=== PATIENT | female | born 1980 | race Caucasian/White ===

== ENCOUNTER → 2018-03-28 | Outpatient (CLI) | payer BC ==
--- NOTE | 2018-03-28 16:50 | RADIOLOGY REPORT (SQ) ---
EXAM DESCRIPTION: C SP 4 OR 5 VIEWS COMPLETED DATE/TIME: 03/28/2018 3:57 pm REASON FOR STUDY: RADICULOPATHY, NEUROPATHY COMPARISON: MRI C SPINE 04/10/2012 NUMBER OF VIEWS: Five views. TECHNIQUE: AP, lateral, obliques and odontoid radiographic images acquired of the cervical spine. LIMITATIONS: None. FINDINGS: MINERALIZATION: Normal. ALIGNMENT: Anatomic. VERTEBRAE: Vertebral bodies of normal height. DISCS: No significant osteophytes or sclerosis. Disc height maintained. FORAMINA: No osteophytes or foraminal narrowing. LATERAL AND POSTERIOR ELEMENTS: Facets, lateral masses and spinous processes without significant find ings. HARDWARE: None in the spine. SOFT TISSUES: No masses or calcifications. Lung apices clear.Tiny surgical cate left superficial n radhika soft tissues OTHER: No other significant finding. IMPRESSION: NO SIGNIFICANT RADIOGRAPHIC FINDING IN THE CERVICAL SPINE. TECHNICAL DOCUMENTATION: JOB ID: [id number] [employer]- All Rights Reserved Reading location - IP/workstation name: [email or web address]
== END ==
LOC: OD 15:36
PROVIDERS: ATTEND Nurse Practitioner Primary Care
DX: M54.12 Radiculopathy, cervical region (principal)
CPT/HCPCS: 72050

== ENCOUNTER → 2018-03-28 | Outpatient (CLI) | payer BC ==
[2018-03-28 17:29] LABS: HEMATOCRIT 37.8 % (36.0-47.0); HEMOGLOBIN 13.3 g/dL (12.0-15.5); MEAN CORPUSCULAR HEMOGLOBIN 31.4 pg (27.0-33.4); MEAN CORPUSCULAR HGB CONC 35.1 g/dL (32.0-36.0); MEAN CORPUSCULAR VOLUME 89 fl (80-97); PLATELET COUNT 247 10^3/uL (150-450); RED BLOOD COUNT 4.23 10^6/uL (3.72-5.28); RED CELL DISTRIBUTION WIDTH 12.9 % (11.5-14.0); WHITE BLOOD COUNT 8.8 10^3/uL (4.0-10.5)
[2018-03-28 17:58] LABS: ALANINE AMINOTRANSFERASE 29 U/L (9-52); ALBUMIN 4.4 g/dL (3.5-5.0); ALKALINE PHOSPHATASE 52 U/L (38-126); ANION GAP 10 (5-19); ASPARTATE AMINO TRANSFERASE 22 U/L (14-36); BILIRUBIN,DIRECT 0.3 mg/dL (0.0-0.4); BILIRUBIN,TOTAL 0.7 mg/dL (0.2-1.3); BLOOD UREA NITROGEN 13 mg/dL (7-20); CALCIUM 9.7 mg/dL (8.4-10.2); CARBON DIOXIDE 29 mmol/L (22-30); CHLORIDE 104 mmol/L (98-107); GLUCOSE 95 mg/dL (75-110); POTASSIUM 4.3 mmol/L (3.6-5.0)
== END ==
LOC: OD 16:06
PROVIDERS: ATTEND Nurse Practitioner Primary Care
DX: M54.10 Radiculopathy, site unspecified (principal); E66.9 Obesity, unspecified
CPT/HCPCS: 36415; 80053; 82306; 82607; 82746; 83036; 84443; 85027

== ENCOUNTER 2018-06-03 07:32 | Emergency (ER) | payer BC ==
--- NOTE | 2018-06-03 08:10 | ER Document Report ---
ED General - General Chief Complaint: Leg Pain Stated Complaint: LEFT LEG PAIN Time Seen by Provider: 06/03/18 08:09 Mode of Arrival: Ambulatory Information source: Patient TRAVEL OUTSIDE OF THE [place] 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 Patient noted she has had some swelling, warmth to touch in her left calf since then. Intermittently takes aspirin but does not take daily anticoagulant. Denies any other area of injury. Worse when she has her foot and plantar flexion. Is not tried any uyno-csu-uqovryy pain medication. denies fevers, chills, chest pain,palpitations, shortness of breath, dyspnea, nausea, vomiting, diarrhea, abdominal pain, hematuria,blurred vision, double vision, loss of vision, speech changes, LH, dizziness, syncope, headaches, wheezing, ST, URI, neck pain, weakness, bowel or bladder dysfunction , saddle anesthesia, numbness or tingling in bilateral upper or lower extremities equally, muscle paralysis, weakness in bilateral upper or lower extremities equally or rash. Denies IV drug use. - Related Data Allergies/Adverse Reactions: ibuprofen [From Motrin] Allergy (Severe, Verified 06/03/18 07:33) Past Medical History - General Information source: Patient - Social History Smoking Status: Unknown if Ever Smoked Chew tobacco use (# tins/day): No Frequency of alcohol use: None Drug Abuse: None Family History: CAD Patient has suicidal ideation: No Patient has homicidal ideation: No Neurological Medical History: Reports: Hx Migraine Renal/ Medical History: Denies: Hx Peritoneal Dialysis Past Surgical History: Reports: Hx Section, Hx Orthopedic Surgery - right knee x2 - Immunizations Hx Diphtheria, Pertussis, Tetanus Vaccination: Yes Review of Systems - Review of Systems Constitutional: No symptoms reported EENT: No symptoms reported Cardiovascular: No symptoms reported Respiratory: No symptoms reported Gastrointestinal: No symptoms reported Genitourinary: No symptoms reported Female Genitourinary: No symptoms reported Musculoskeletal: See HPI Skin: No symptoms reported Hematologic/Lymphatic: No symptoms reported Neurological/Psychological: No symptoms reported Physical Exam - Vital signs Vitals: Temp Pulse Resp BP Pulse Ox 98.5 F 75 16 128/79 H 98 06/03/18 07:38 07/07/18 07:38 06/03/18 07:38 06/03/18 07:38 06/03/18 07:38 - Notes Notes: PHYSICAL EXAMINATION: GENERAL: Well-appearing, well-nourished and in no acute distress. HEAD: Atraumatic, normocephalic. EYES: Pupils equal round and reactive to light, extraocular movements intact, conjunctiva are normal. ENT: Nares patent, oropharynx clear without exudates. Moist mucous membranes. NECK: Normal range of motion, supple without lymphadenopathy LUNGS: Breath sounds clear to auscultation bilaterally and equal. No wheezes rales or rhonchi. HEART: Regular rate and rhythm without murmurs ABDOMEN: Soft, nontender, nondistended abdomen. No guarding, no rebound. No masses appreciated. Female : deferred Musculoskeletal: Normal range of motion, no pitting or edema. No cyanosis. left calf tenderness with palpation to calf. negative félix's sign. anterior and posterior drawer test negative.Dtr + 2 in BLE. Full motor and sensory function. no ecchymosis or abrasions noted. distal pulses + 2 bilaterally and equally. Bilateral lower extremity without deformity or asymmetry. No STS or edema. No overlying erythema, warmth, discoloration. No lesions or break in the skin integrity. No evidence of compartment syndrome, lymphadenopathy, gangrene. Angulo test negative bilaterally. no palpable cords or evidence of thrombophlebitis. NEUROLOGICAL: Cranial nerves grossly intact. Normal speech, normal gait. Normal sensory, motor exams PSYCH: Normal mood, normal affect. SKIN: Warm, Dry, normal turgor, no rashes or lesions noted. Course - Re-evaluation Re-evalutation: 06/03/18 15:38 37-year-old female is afebrile, vitals stable and in no distress with prior history of 2 DVTs in her left lower extremity in the months of May approximately 9 years ago presents to the ED with sudden onset Pain after stepping down stairs yesterday and feeling a "pop". CBC negative for leukocytosis or anemia, CMP negative for any hepatic or renal deficiency, no electrolyte deficiencies. Patient states she has been taking Tylenol for pain. His ultrasound of left lower extremity negative for DVT. Discussed the patient the importance of applying compress, elevation, heat, nonweightbearing and following up with sales account specialist, she likely has a partial tear or sprain of her gastrocnemius muscle on the left. No evidence of a septic joint, gout flare, dislocation, or fracture on exam and imaging. Vitals wnl. At this time, I do not see an indication for labs or further imaging. Will discharge with conservative measures, return precautions, and follow-up recommendations. Advised patient to not drive, drink alcohol or operate heavy machinery while taking Flexeril as it can cause sedation. Follow-up with sales account specialist within the next week or so. I have reevaluated this patient multiple times and no significant life threatening changes, no signs of toxicity, sepsis or peritonitis are noted. The patient and I have discussed the diagnosis and risks , and we agree with discharging home and close follow-up. We also discussed returning to the Emergency Department immediately if new or worsening symptoms occur with the understanding that symptoms and presentations can change. At this time will discharge with return precautions and follow-up recommendations. Verbal discharge instructions given a the bedside and opportunity for questions given. We have discussed the symptoms which are most concerning (e.g. , worsening pain, fever, numbness or tingling down bilateral extremities, weakness, change in color, etc.) that necessitate immediate return. Medication warnings reviewed. All questions and concerns answered by this provider. Patient is in agreement with this plan and has verbalized understanding of return precautions and the need for primary care follow-up in the next 24-72 hours. Patient verbalized understanding of plan of care and agree with plan of care. - Vital Signs Vital signs: Temp Pulse Resp BP Pulse Ox 97.9 F 62 18 117/73 100 06/03/18 12:33 06/03/18 12:33 06/03/18 12:33 06/03/18 12:33 06/03/18 12:33 Discharge - Discharge Clinical Impression: Pain of left calf, Calf pain Condition: Stable Disposition: HOME, SELF-CARE Instructions: Muscle Relaxers ([facility]), Muscle Strain ([facility]), Myalagia (Muscle Pain ) ([facility]) Additional Instructions: Please follow up with the [facility] [address] [place] [id number] Prescriptions: Cyclobenzaprine HCl [Flexeril 10 mg Tablet] 10 mg PO TIDP PRN #9 tab PRN Reason: Prednisone 20 mg PO BID #10 tablet Forms: Return to Work Referrals: CELSO HILL NP [Primary Care Provider] - Follow up in 3-5 days MARCOS ROSS MD [ACTIVE STAFF] - Follow up in 3-5 days
[2018-06-03] MEDS ORDERED: HYDROCODONE/ACETAMINOPHEN 5-325 MG (6 TAB/ER DISP) PO PRN (08:34)
--- NOTE | 2018-06-03 09:14 | RADIOLOGY REPORT (SQ) ---
EXAM DESCRIPTION: TIBIA FIBULA LEFT COMPLETED DATE/TIME: 06/03/2018 8:50 am REASON FOR STUDY: sudden onset calf pain, heard a pop COMPARISON: None. NUMBER OF VIEWS: Two views. TECHNIQUE: Two radiographic images acquired of the left tibia and fibula to include the knee and ank le in at least one projection. LIMITATIONS: None. FINDINGS: MINERALIZATION: Normal. BONES: No acute fracture or dislocation. No worrisome bone lesions. SOFT TISSUES: No obvious swelling or foreign body. OTHER: No other significant finding. IMPRESSION: NEGATIVE STUDY OF THE LEFT TIBIA AND FIBULA. NO RADIOGRAPHIC EVIDENCE OF ACUTE INJURY. TECHNICAL DOCUMENTATION: JOB ID: [id number]- All Rights Reserved Reading location - IP/workstation name: [email or web address]
[2018-06-03 12:39] VITALS: BP 117/73
--- NOTE | 2018-06-03 22:05 | XCELERA REPORT ---
[address] [address] Lower Extremity Venous Evaluation Name: RAYMOND PEACE Age: 37 yrs Gender: Female : 1980 Patient Status: Emergency Patient Location: ER Study Date: 06/03/2018 11:54 AM Procedure: Color flow and duplex imaging of the veins of the left lower extremity as well as the right Common Femoral vein. Reason For Study: left calf pain, hx of dvt x2 in same calf in may Ordering Physician: RICHARD LEE Performed By: Seema Isbell Right Sided Venous Evaluation The right common femoral vein is fully compressible. Spontaneous and phasic flow is present in the right common femoral vein. Left Sided Venous Evaluation Normal vessel filling wall to wall, compression and augmentation as well as Colour flow down to the infrageniculate veins. Interpretation Summary No duplex evidence of DVT or obstruction in the left lower extremity nor in the right Common Femoral vein. : RICHARD LEE > Luis Miguel Martinez
== END 2018-06-03 12:39 | disposition home or self-care (01) ==
LOC: ER 07:32
DX: M79.605 Pain in left leg (principal)
CPT/HCPCS: 93971; 99284